=== PATIENT | female | born 1970 | race Caucasian/White ===

== ENCOUNTER 2024-04-24 12:42 | Emergency (ER) | payer OTHER ==
[~2024-04-24] VITALS: Ht 162.6 cm; Wt 61.2 kg
[2024-04-24 13:54] LABS: BASOPHILS # (AUTO) 0.1 K/UL (0.0-0.2); DIFFERENTIAL COMMENT 1; EOSINOPHILS # (AUTO) 0.1 K/uL (0.0-0.7); EOSINOPHILS % (AUTO) 2.3 % (0.0-7.0); HEMOGLOBIN 11.7 g/dL (10.9-14.3); LYMPHOCYTES # (AUTO) 1.4 K/uL (0.8-4.8); MEAN CORPUSCULAR HEMOGLOBIN 27.4 uug (24.7-32.8); MEAN CORPUSCULAR HGB CONC 33 g/dL (32.3-35.6); MEAN CORPUSCULAR VOLUME 83.8 fL (75.5-95.3); MONOCYTES # (AUTO) 0.5 K/uL (0.1-1.30); MONOCYTES % (AUTO) 9.1 % (0.0-11.0); NEUTROPHILS # (AUTO) 3.4 K/uL (1.8-8.9); NEUTROPHILS % (AUTO) 62.6 % (38.5-71.5); PLATELET COUNT (AUTO) 221 K/uL (179-408); RED CELL DISTRIBUTION WIDTH 15.2 % (12.3-17.7); WHITE BLOOD COUNT (AUTO) 5.5 K/uL (3.8-11.8)
[2024-04-24 14:02] LABS: CALCIUM 8.7 mg/dL (8.5-10.1); CREATININE 0.6 mg/dL (0.6-1.3); POTASSIUM 3.9 mmol/L (3.5-5.1)
[2024-04-24] MEDS ORDERED: METOCLOPRAMIDE HCL 10 MG/2 ML VIAL ONE (14:11)
[2024-04-24] MEDS ORDERED: KETOROLAC TROMETHAMINE 30 MG INJ ONE (14:11)
[2024-04-24] MEDS ORDERED: diphenhydrAMINE 50 MG/1 ML VIAL ONE (14:11)
[2024-04-24] MEDS: KETOROLAC TROMETHAMINE 30 MG INJ IVP ONE (14:15)
[2024-04-24] MEDS: METOCLOPRAMIDE HCL 10 MG/2 ML VIAL IV ONE (14:17)
[2024-04-24 14:20] LABS: IRON, SERUM 39 ug/dL (50-175)
[2024-04-24] MEDS: diphenhydrAMINE 50 MG/1 ML VIAL IV ONE (14:25)
[2024-04-24] MEDS ORDERED: DIPH25CA83 PO (16:33)
[2024-04-24] MEDS ORDERED: METO-295 PO (16:33)
[2024-04-24] MEDS ORDERED: NAPR-1009 PO (16:33)
[2024-04-24 16:46] VITALS: BP 116/79; O2SAT 99
== END 2024-04-24 16:48 | disposition home or self-care (01) ==
LOC: ER 12:42
DX: G43.909 Migraine, unspecified, not intractable, without status migrainosus (principal); D50.9 Iron deficiency anemia, unspecified; Z79.899 Other long term (current) drug therapy
CPT/HCPCS: 99285; 96374; 70450; 96375; 80048; 83550; 83735; 85025; 36415; J1200; J1885; J2765; A4606; A4663